=== PATIENT | female | born 1970 | race Caucasian/White ===

== ENCOUNTER 2021-02-20 16:13 | Emergency (ER) | payer MEDICAID ==
[~2021-02-20] VITALS: Ht 157.5 cm; Wt 72.6 kg
--- NOTE | 2021-02-20 16:19 | NUR ---
TO ER BED 2, FROM HOME C/O DIZZINESS AND WEAKNESS TODAY, RINGING IN THE EAR HEADACE X1WK, AAOX3, BREATHING EVEN AND NON LABORED, DENIES ANY PAIN, CHANGED INTO A GOWN, CONNECTED TO THE MONITOR.
[2021-02-20] MEDS ORDERED: ASPIRIN 325 MG TABLET PO ONE (16:30)
[2021-02-20] MEDS ORDERED: IV NS 0.9% 1,000 ML BAG IV ONE (16:30)
[2021-02-20 16:44] LABS: BASOPHILS # (AUTO) 0.1 K/uL (0.0-0.2); BASOPHILS % (AUTO) 0.9 % (0.0-2.0); EOSINOPHILS % (AUTO) 2.1 % (0.0-6.0); HEMATOCRIT 27 % (33-45); HEMOGLOBIN 7.8 g/dL (11.5-14.8); LYMPHOCYTES # (AUTO) 2.6 K/uL (0.8-4.8); LYMPHOCYTES % (AUTO) 25.6 % (20.0-44.0); MEAN CORPUSCULAR HGB CONC 30 g/dl (31.0-36.0); MEAN CORPUSCULAR VOLUME 61 fL (82-100); MONOCYTES # (AUTO) 0.9 K/uL (0.1-1.30); NEUTROPHILS # (AUTO) 6.4 K/uL (1.8-8.9); NEUTROPHILS % (AUTO) 62.4 % (43.0-81.0); PLATELET COUNT (AUTO) 764 K/uL (150-450); RED BLOOD CELL COUNT(AUTO) 4.38 MIL/uL (4.0-5.2); WHITE BLOOD COUNT (AUTO) 10.2 K/uL (4.3-11.0)
[2021-02-20] MEDS ORDERED: ASPIRIN 325 MG TABLET ONE (16:46)
[2021-02-20 16:55] LABS: CALCIUM, SERUM 9.1 mg/dL (8.5-10.1); CARBON DIOXIDE 24 mmol/L (21-32); CHLORIDE 104 mmol/L (98-107); CREATININE 1.2 mg/dL (0.6-1.3); GLUCOSE 118 mg/dL (74-106); POTASSIUM 3.9 mmol/L (3.5-5.1); SODIUM SERUM 139 mmol/L (136-145); UREA NITROGEN, BLOOD 10 mg/dL (7-18)
[2021-02-20 17:01] LABS: ALANINE AMINOTRANSFERASE 23 U/L (12-78); ALBUMIN 3.6 g/dL (3.4-5.0); ALKALINE PHOSPHATASE 64 U/L (46-116); ASPARTATE AMINOTRANSFERASE 19 U/L (15-37); BILIRUBIN,DIRECT 0.1 mg/dL (0.0-0.2); BILIRUBIN,TOTAL 0.2 mg/dL (0.2-1.0); TOTAL PROTEIN, SERUM 6.9 g/dL (6.4-8.2)
[2021-02-20] MEDS ORDERED: ASPI-1169 PO (17:12)
[2021-02-20] MEDS ORDERED: METF-440 PO (17:12)
[2021-02-20] MEDS ORDERED: ATOR40TA PO (17:12)
[2021-02-20] MEDS ORDERED: MONT10TA22 PO (17:12)
[2021-02-20] MEDS ORDERED: LISI40TA13 PO (17:12)
[2021-02-20] MEDS ORDERED: ESCI20TA PO (17:12)
--- NOTE | 2021-02-20 17:35 | NUR ---
UNABLE TO GIVE URINE AT THIS TIME
--- NOTE | 2021-02-20 17:39 | NUR ---
COVID ANTIGEN SWAB DONE AND SENT TO LAB
--- NOTE | 2021-02-20 18:24 | NUR ---
STILL UNABLE TO PROVIDE URINE AT THIS TIME
--- NOTE | 2021-02-20 18:36 | NUR ---
PAGED [facility].
--- NOTE | 2021-02-20 19:06 | NUR ---
DR. DOUGHERTY ON THE PHONE FOR PEER TO PEER FROM [facility].
--- NOTE | 2021-02-20 19:17 | NUR ---
URINE COLLECTED AND SENT TO LAB
[2021-02-20 19:50] LABS: EOSINOPHILS % (MANUAL) 1 % (0-4); LYMPHOCYTES % (MANUAL) 13 % (16-48); MONOCYTES % (MANUAL) 9 % (0-11.0); NEUTROPHILS % (MANUAL) 77 (42-76)
--- NOTE | 2021-02-20 20:52 | NUR ---
PER ANDERSON ALEJANDRA PT GOT ACCEPTED AT [facility] IN [facility] BY DR DOUGHERTY, GOING TO RM: [id number] # FOR REPORT: [phone] AUTH NUMBER FOR TRANSPO: [id number]
--- NOTE | 2021-02-20 20:55 | NUR ---
PER DR LAW, PT CAN BE TRANSFERRED VIA BLS TRANSPORTATION
--- NOTE | 2021-02-20 20:57 | NUR ---
CALLED [facility]. [facility] TRANSPORT HAS BEEN SCHEDULED FOR 2199 TO 2229.
--- NOTE | 2021-02-20 22:09 | NUR ---
REPORT GIVEN TO XAVIER MON
--- NOTE | 2021-02-20 22:11 | NUR ---
PT BEING TRANSFERRED TO [facility] VIA AMBULANCE
[2021-02-20 22:12] VITALS: BP 114/64
--- NOTE | 2021-02-20 22:20 | NUR ---
PT WAS PICKED UP BY [facility] AND GOT TRANSFERRED TO [facility] IN [facility]ABLE CONDITION
== END 2021-02-20 22:23 | disposition short-term general hospital (02) ==
LOC: ER 16:18
DX: R55 Syncope and collapse (principal); R07.9 Chest pain, unspecified; Z20.822 Contact with and (suspected) exposure to COVID-19; D50.9 Iron deficiency anemia, unspecified; Z79.82 Long term (current) use of aspirin; Z79.899 Other long term (current) drug therapy; J44.9 Chronic obstructive pulmonary disease, unspecified; E11.9 Type 2 diabetes mellitus without complications; Z79.84 Long term (current) use of oral hypoglycemic drugs; E78.5 Hyperlipidemia, unspecified; Z86.73 Personal history of transient ischemic attack (TIA), and cerebral infarction without residual deficits
CPT/HCPCS: 36415; 70450; 71045; 80048; 80076; 84484; 84703; 85007; 85025; 85730; 87081; 87426; 93005; 96360; 99291; 99292; C9803; J7030